=== PATIENT | female | born 1935 | race Caucasian/White ===

== ENCOUNTER 2019-11-10 14:56 | Emergency (ER) | payer MEDICARE, BC ==
[2019-11-10] MEDS ORDERED: Diphtheria,Pertussis(Acell),Tetanus Vaccine 0.5 ML SDV IM ONE (15:54)
--- NOTE | 2019-11-10 15:55 | EDM.PDOC ---
ED HPI GENERAL MEDICAL PROBLEM - General Stated Complaint: FELL/HIT HEAD Time Seen by Provider: 11/10/19 15:50 Source of Information: Reports: Patient History Limitations: Reports: No Limitations - History of Present Illness INITIAL COMMENTS - FREE TEXT/NARRATIVE: Patient is an 84 year old female, arrives to the ED today after she fell and hit her head. Patient was sitting on the dock on her walker getting ready to fish, walker moved and patient fell forward striking her head and went into the zaldivar. Patient denies any LOC. Patient is on Plavix. Patient uncertain of her last DT. Patient denies any neck or back pain. Patient denies any other injuries. Onset: Today, Sudden Head Pain Score (Numeric/FACES): 2 - Related Data Allergies Allergy/AdvReac Type Severity Reaction Status Date / Time fenofibrate [From Tricor] Allergy Intermediate Numbness Verified 11/10/19 15:49 Home Meds: Home Meds Aspirin [Ecotrin EC] 81 mg PO DAILY 06/14/14 [History] Insulin Glarg,Human.Rec.Analog [Lantus] 18 unit SQ Q12H 06/14/14 [History] Isosorbide Mononitrate [Imdur] 30 mg PO BEDTIME 06/14/14 [History] Lisinopril 5 mg PO BID 06/14/14 [History] Nitroglycerin [Nitrostat] 1 tab SL ASDIRECTED 06/14/14 [History] [place]-3 Fatty Acids [[place]-3] 1,000 mg PO DAILY 06/14/14 [History] Simvastatin [Zocor] 80 mg PO BEDTIME 06/19/14 [History] Clopidogrel [Plavix] 75 mg PO DAILY 11/10/19 [History] Docusate Sodium/Sennosides [Senokot-S] 2 each PO BEDTIME PRN 11/10/19 [History] Folic Acid 1 mg PO DAILY 11/10/19 [History] Furosemide [Lasix] 20 mg PO DAILY 11/10/19 [History] amLODIPine [Norvasc] 2.5 mg PO DAILY 11/10/19 [History] carvediloL [Coreg] 3.125 mg PO BID 11/10/19 [History] metHOTREXate sodium [Methotrexate] 15 mg PO WEEKLY 11/10/19 [History] ED ROS GENERAL - Review of Systems Review Of Systems: Comprehensive ROS is negative, except as noted in HPI. ED EXAM, HEAD INJURY - Physical Exam Exam: See Below Exam Limited By: No Limitations General Appearance: Alert, WD/WN, No Apparent Distress Head: Normocephalic, Scalp Lacerations Nexus Criteria: No: Posterior, Midline Cervical Tenderness Eyes: Bilateral Eye: EOMI, PERRL Ears: Normal External Exam Throat/Mouth: Normal Inspection, Normal Oropharynx Neck: Non-Tender, Full Range of Motion, Normal Alignment, Normal Inspection Respiratory: No Respiratory Distress, Lungs Clear Cardiovascular: Normal Peripheral Pulses, Regular Rate, Rhythm GI/Abdominal Exam: Soft, Non-Tender Rectal (Female) Exam: Normal Exam Extremities: Normal Inspection Neurologic: No Motor/Sensory Deficits, Alert, Normal Mood/Affect - [place] Coma Score Best Eye Response (Adam): (4) Open Spontaneously Best Verbal Response ([place]): (5) Oriented Best Motor Response (Adam): (6) Obeys Commands ED LACERATION/WOUND & CARO PROC - Laceration/Wound Repair Right Head Appearance: Subcutaneous Distal NVT: Neuro & Vascular Intact, No Tendon Injury Anesthetic Type: Local Local Anesthesia - Lidocaine (Xylocaine): 1% with EPI Local Anesthetic Volume: 4cc Skin Prep: Chlorhexidine (Hibiciens), Saline Exploration/Debridement/Repair: No Foreign Material Found Closed with: Abby # of Sutures: 8 Course - Vital Signs Last Recorded V/S: Last Vital Signs Temp 36.2 C 11/10/19 16:21 Pulse 94 11/10/19 17:03 Resp 15 11/10/19 17:03 BP 121/63 11/10/19 17:03 Pulse Ox 99 11/10/19 17:03 Minerva is a very pleasant 84 year old female who presents to the ED today after falling into the zaldivar from her walker and sustaining a head laceration. Please refer to HPI and focused exam. Patient has a 4.5 cm laceration to right scalp, top portion, stapled as noted in procedure note. Patient's DT up to date. Patient has no neuro/focal deficits, no signs of concussive syndrome, no neck pain. CT of head and neck obtained given hx of Plavix, age and fall and is negative. Patient reassured, staple removal in 7 days, wound care discussed as well as reasons to return to the ED. Patient and her agreeable and pat ient discharged in stable condition. - Orders/Labs/Meds Orders: Active Orders 24 hr Category Date Time Status Vaccines to be Administered [RC] PER UNIT ROUTINE Care 11/10/19 15:54 Active Cervical Spine wo Cont [CT] Stat Exams 11/10/19 15:54 Taken Head wo Cont [CT] Stat Exams 11/10/19 15:52 Taken Meds: Medications Discontinued Medications Generic Name Dose Route Start Last Admin Trade Name Brittany PRN Reason Stop Dose Admin Bacitracin 1 dose 11/10/19 17:04 11/10/19 17:13 Bacitracin Oint 1 Gm TOP 11/10/19 17:05 1 dose ONETIME ONE Administration Diphtheria/Tetanus/Acell Pertussis 0.5 ml 11/10/19 15:54 11/10/19 16:31 Adacel IM 11/10/19 15:55 0.5 ml .ONCE ONE Administration Lidocaine/Epinephrine 5 ml 11/10/19 17:04 Xylocaine 1% With Epinephrine 1:100,000 INJECT 11/10/19 17:05 NOW STA Departure - Departure Time of Disposition: 18:00 Disposition: Home, Self-Care 01 Condition: Good Clinical Impression: Scalp laceration, Head injury due to trauma Fall Qualifiers: Encounter type: initial encounter Qualified Code(s): W19.XXXA - Unspecified fall, initial encounter - Discharge Information Instructions: Laceration Care, Adult, Wound Care, Adult, Sutures, Castle, or Adhesive Wound Closure, [id number], Head Injury, Adult, [id number] Referrals: Philip Juarez MD [Primary Care Provider] - Additional Instructions: Your CT scans look fine. Keep your wound clean, abby can come out in 7 days, here or clinic. Tylenol as needed for pain per bottle instructions. Return here with any headache not relieved with Tylenol, abnormal behavior (more than normal), visual changes, vomiting or other concerns. Sepsis Event Note (ED) - Focused Exam Vital Signs: Vital Signs Temp Pulse Resp BP Pulse Ox 11/10/19 17:03 94 15 121/63 99 11/10/19 16:21 36.2 C 85 15 110/56 L 100 11/10/19 15:33 36.2 C 85 16 95/43 L 100 - My Orders Last 24 Hours: My Active Orders 11/10/19 15:52 Head wo Cont [CT] Stat 11/10/19 15:54 Vaccines to be Administered [RC] PER UNIT ROUTINE Cervical Spine wo Cont [CT] Stat - Assessment/Plan Last 24 Hours: My Active Orders 11/10/19 15:52 Head wo Cont [CT] Stat 11/10/19 15:54 Vaccines to be Administered [RC] PER UNIT ROUTINE Cervical Spine wo Cont [CT] Stat
[2019-11-10 17:04] VITALS: BP 121/63; PULSE 94
[2019-11-10] MEDS ORDERED: Lidocaine 1% with EPINEPHrine 1:100,000 50 ML MDV INJECT STA (17:04)
[2019-11-10] MEDS ORDERED: Bacitracin Oint 1 GM U/D Packet TOP ONE (17:04)
--- NOTE | 2019-11-10 17:40 | CRLCT ---
INDICATION: Fall, head lac, on Plavix. COMPARISON: None. TECHNIQUE: CT of the head without IV contrast. Coronal and sagittal reconstructions are provided. FINDINGS: No intracranial hemorrhage, mass effect, or evidence of acute infarct. No midline shift. No abnormal extra-axial fluid collections. Mild generalized cerebral and cerebellar volume loss. Normal caliber ventricular system. 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 Intracranial vascular calcifications. Orbits and extraocular muscles are symmetric. The visualized paranasal sinuses and mastoid air cells are clear. No acute fracture. Soft tissue irregularity overlying the right parietal bone superiorly could represent a laceration. IMPRESSION: : 1. No acute intracranial findings. 2. Scalp laceration overlying the superior right parietal bone. Please note that all CT scans at this facility use dose modulation, iterative reconstruction, and/or weight-based dosing when appropriate to reduce radiation dose to as low as reasonably achievable. Dictated by Flower Mars MD @ Nov 10 2019 5:33PM Signed by Dr. Flower Mars @ Nov 10 2019 5:39PM
--- NOTE | 2019-11-10 17:48 | CRLCT ---
Indication: Fall. Technique: CT cervical spine without IV contrast. Coronal and sagittal reconstructions. Comparison: None. Findings: No acute fracture or traumatic malalignment of the cervical spine. Mild anterolisthesis of C3 on C4, C5 on C6 C6-C7, and C7 on T1. Vertebral body heights are well maintained. Spondylotic changes of the cervical spine including hypertrophic spurring, facet arthropathy, and disc space narrowing greatest at C5-C6. Moderate right neural foraminal narrowing at C4-C5 and moderate bilaterally at C5-C6. No significant spinal canal stenosis. Paraspinal soft tissues are unremarkable. 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 Visualized intracranial contents are otherwise unremarkable. Bilateral carotid bulb calcifications. The thyroid gland is normal in appearance. Prominent upper mediastinal lymph nodes could be reactive. Aortic arch calcification. The lung apices are clear. Impression: 1. No acute fracture or traumatic malalignment of the cervical spine. 2. Spondylotic changes of the cervical spine as detailed in the findings. Please note that all CT scans at this facility use dose modulation, iterative reconstruction, and/or weight-based dosing when appropriate to reduce radiation dose to as low as reasonably achievable. Dictated by Flower Mars MD @ Nov 10 2019 5:39PM Signed by Dr. Flower Mars @ Nov 10 2019 5:47PM
== END 2019-11-10 18:19 | disposition home or self-care (01) ==
LOC: JP.ED 14:56
DX: S01.01XA Laceration without foreign body of scalp, initial encounter (principal); Z88.8 Allergy status to other drugs, medicaments and biological substances; Z79.82 Long term (current) use of aspirin; Z79.4 Long term (current) use of insulin; Z79.899 Other long term (current) drug therapy; Z79.02 Long term (current) use of antithrombotics/antiplatelets; Z23 Encounter for immunization; W22.8XXA Striking against or struck by other objects, initial encounter; Y92.828 Other wilderness area as the place of occurrence of the external cause
CPT/HCPCS: 12002; 12013; 70450; 72125; 90471; 90715; 99282; 99284-25